=== PATIENT | male | born 1975 | race Native Hawaiian/Other Pacific Islander ===

== ENCOUNTER 2016-12-13 07:34 | Emergency (ER) | payer BC ==
[~2016-12-13] VITALS: Ht 185.4 cm; Wt 86.2 kg
[2016-12-13 07:35] VITALS: TEMP 97.7
[2016-12-13 08:14] LABS: POTASSIUM 4.1 mmol/L (3.6-5.2); SODIUM 137 mmol/L (136-145)
[2016-12-13 08:15] LABS: PLATELET COUNT 323 K/uL (142-355)
[2016-12-13 09:35] VITALS: BP 147/85
== END 2016-12-13 09:38 | disposition home or self-care (01) ==
LOC: ED 07:34
DX: N20.1 Calculus of ureter (principal)
CPT/HCPCS: 36415; 80053; 81000; 85027; 96365; 96374; 96375; 99284; J1885; J2405